=== PATIENT | female | born 1990 ===

== ENCOUNTER 2017-07-12 15:13 | Inpatient (IN) | payer OTHER ==
[~2017-07-12] VITALS: Ht 177.8 cm; Wt 111.0 kg
[2017-07-12] VITALS (14 sets, daily range): BP systolic 109–155; BP diastolic 65–95
[2017-07-12] MEDS ORDERED: VALT500T PO (15:37)
[2017-07-12] MEDS ORDERED: PRENTAB9 PO (15:37)
[2017-07-12] MEDS ORDERED: VITA100067 PO (15:37)
[2017-07-12] MEDS ORDERED: PROZ40CA PO (15:37)
[2017-07-12] MEDS ORDERED: LACTATED RINGER'S 1000 ML IV STA (16:49)
[2017-07-12] MEDS ORDERED: LR 1,000 ML IV SCH (17:00)
[2017-07-12] MEDS ORDERED: OXYTOCIN DRIP 30 UNITS in APPROPRIATE DILUENT 1 EA IV SCH (17:00)
--- NOTE | 2017-07-12 17:17 | HPEPDOC ---
Obstetrical History & Physical General Date of Admission Jul 12, 2017 at 16:34 History of Present Illness 26 y/o at 38+6 with VB since intx this AM. Small amt's all day long. No LOF. Irreg ctx's. Pos FM. Chief Complaint: Vaginal Bleeding Information Provided By: Patient Care Care: Good Care Dating Final EDC: Jul 20, 2017 Final EDC by: 1st trimester (US) (6 wk US) Antepartum Course Diagnos(e)s depression on Prozac Obese, early GCT WNL H/O HSV but no outbreaks in over 12 months, has been on Valtrex until 2 days ago , ran out, declines current sx's Past Medical History Past Obstetrical History : Past Obstetrical History: Multigravida Type of Delivery: Spontaneous Vaginal Del. (2012 7 lbs, 2014 7 lbs , no complications) RESEARCH INTERN History: No pertinent history, Herpes simplex virus(HSV) Past Medical History Medical History depression well controlled Surgical History: Denies/None Family History Significant Family History: No pertinent family hx Social History Marital Status: Family situation: Spouse/partner home Psychosocial History: No pertinent psych hx * Smoker: non-smoker Alcohol: Denies Drugs: denies Abuse Violence Screening Have you been hit/kicked/slapp: No Have you been sexually assault: No Imunizations Tdap status: current Influenza Status: declined Allergies Coded Allergies: No Known Allergies (Unverified , 07/12/17) Medications Scheduled Fluoxetine HCl (Prozac) 40 Mg Cap, 40 MG PO DAILY Multivitamins/ ( 27-0.8 mg) 1 Tab Tab, 1 TAB PO DAILY Valacyclovir Hydrochloride (Valtrex) 500 Mg Tab, 500 MG PO DAILY Vitamin D (Vitamin D) 1,000 Unit Cap, 1,000 UNIT PO DAILY Physical Examination Physical Examination GENERAL: Alert and oriented times three. ABDOMEN: Gravid and non-tender to touch. FETUS: vertex (VTX) by cx check. 4/70/-2/intact membranes, adeq pelvis. NEFG with no HSV lesions, my EFW 7 lbs HEART RATE: Regular rate and rhythm. LUNGS: Clear to auscultation (CTA). EXTREMITIES: No edema. Laboratory Data 24H LABS Laboratory Tests 2 07/12/17 16:38: Serology Scanned Report Hepatitis B Testing Urine Culture: No Growth Pertinent Laboratoy Data Blood Type: O+ RBC Antibody Screen: Negative HIV: Negative Hepatitis B: Negative Hepatitis C: Unknown Rapid Plasma Reagin: Nonreactive Rubella: Immune Varicella: Immune Chlamydia/Gonorrhea: Negative Group B Streptococcus: Negative Quad Screen Test: Declined Cystic Fibrosis: Declined Glucose Tolerance Test: 105 Anatomy Ultrasound Ultrasound Date: Mar 02, 2017 Placenta Location: Posterior Normal Anatomy: Yes Placenta Previa: No Steroid Therapy Steroid Therapy: No Assessment Variability: Moderate Accelerations: Positive Decelerations: Intermittent (1 late, isolated. Another decel noted that was random. Enough to augment, not send home) Tocometer Contractions: Yes Frequency: irregular Duration: less than 60 seconds Strength: palpated as mild Assessment/Plan Assessment 38+6 with 2 isolated decels, reassuring o/w. Cx favorable. Will augment with pitocin. Plan Admit and orient. Order Takers Supervisor and consent. Diet: clrs. Group B Streptococcus (GBS) neg Labs and intravenous (IV) per unit protocol. Counseled on Pitocin and induction/augmentation of labor (IOL). Lactated Ringers (LR): Bolus 1000 mL prior to epidural, then at 125 mL/hr o/w Anticipate normal spontaneous delivery () C-S as appropriate. Sessions SESSIONS,LAURA Waite MD Jul 12, 2017 17:17
[2017-07-12] MEDS ORDERED: CALCIUM CARBONATE 500 MG CHEW U/D PO PRN (17:30)
[2017-07-12 17:48] LABS: MEAN CORPUSCULAR HEMOGLOBIN 24.9 pg (27.0-33.0); MEAN CORPUSCULAR HGB CONC 32.2 g/dl (32.0-36.5); MEAN CORPUSCULAR VOLUME 77.3 fl (80.0-96.0); RED CELL DISTRIBUTION WIDTH 15.5 % (11.5-14.5); WHITE BLOOD COUNT 8.2 K/mm3 (4.0-10.0)
--- NOTE | 2017-07-12 19:17 | IPNPDOC ---
Text Note Date of Service The patient was seen on 07/12/17. NOTE NST reassuring, mostly Cat 1, mod mukesh and pos accels, ctx's have spaced out somewhat although she is feeling them more SROM clr at 1730, at that time decided to hold on pitocin for a few hours to see if progressed on her own Cx unchanged will start pitocin now, will check ~2200 Sessions VS,Mitzi, I+O VSMitzi, I+O Laboratory Tests 07/12/17 17:40 Red Blood Count 4.12, Mean Corpuscular Volume 77.3 L, Mean Corpuscular Hemoglobin 24.9 L, Mean Corpuscular Hemoglobin Concent 32.2, Red Cell Distribution Width 15.5 H SESSIONS,LAURA Waite MD Jul 12, 2017 19:17
[2017-07-12] MEDS: DOCUSATE SODIUM 100 MG CAP PO SCH (21:00)
[2017-07-12] MEDS ORDERED: FENTANYL 2MCG/ML ROPIVACAINE 0.2% IN 0.9% NACL 200ML IVBAG As Ordered ONE (21:55)
[2017-07-12] MEDS ORDERED: EPIDURAL COMMENT XX SCH (22:10)
[2017-07-12] MEDS ORDERED: NALOXONE INJ 0.4 MG/1 ML VIAL (J2310) IV PRN (22:10)
[2017-07-12] MEDS ORDERED: REFRIGERATOR IV KEYS XX PRN (22:10)
[2017-07-12] MEDS ORDERED: diphenhydrAMINE INJ 50MG/ML VIAL (J1200) IV PRN (22:10)
[2017-07-12] MEDS ORDERED: ONDANSETRON 4MG/2ML VIAL (J2405) IV PRN (22:10)
[2017-07-12] MEDS ORDERED: LACTATED RINGER'S 1000 ML IV PRN (22:10)
[2017-07-12] MEDS ORDERED: EPIDURAL/PCA KEYS XX PRN (22:10)
[2017-07-12] MEDS ORDERED: FENTANYL/ROPIVACAINE/NACL BAG 200 ML EPIDURAL SCH (22:10)
[2017-07-12] MEDS ORDERED: ePHEDrine SULFATE 25 MG/5 ML(5MG/ML) SYRINGE IV PRN (22:10)
--- NOTE | 2017-07-13 00:03 | DNPDOC ---
[facility] Delivery Note Delivery Note DATE OF DELIVERY: [id number] at 2340 PREDELIVERY DIAGNOSIS: 38 6/7 weeks' gestation and labor. POST DELIVERY DIAGNOSIS: Delivered. PROCEDURE: Spontaneous vaginal delivery [facility] ATTEND[facility]: Dr. Israel ANESTHESIA: Epidural ESTIMATED BLOOD LOSS: 200 mL. FINDINGS: weight TBD, Score 8/ DELIVERY SUMMARY: Called to room, I was in house around the corner, ~30 s called and baby had delivered, very fast and no delaying the mother. When I entered the room ~1-2 min after delivery on chest and crying. Cord C/C by FOB. Cord blood. Placenta delivered with slight traction and fundal massage , intact. Pit going and fundus firm. No lacs on close inspection. Sessions MD ISRAEL,LAURA Waite MD Jul 13, 2017 00:03
[2017-07-13] MEDS ORDERED: OXYTOCIN DRIP 30 UNITS in APPROPRIATE DILUENT 1 EA IV SCH ×4 (00:06)
[2017-07-13] MEDS ORDERED: RHOGAM 300 MCG (1500 IU) INJ (J2790) IM SCH (00:15)
[2017-07-13] MEDS ORDERED: MEASLES,MUMPS,RUBELLA VACCINE INJ (MMR-II) (90707) SC SCH (00:15)
[2017-07-13] MEDS ORDERED: DIBUCAINE 1% OINTMENT 30GM TOP PRN (00:15)
[2017-07-13 00:25] VITALS: BP 119/74
[2017-07-13 00:55] VITALS: BP 128/74
[2017-07-13 01:56] VITALS: BP 136/72
[2017-07-13] MEDS: IBUPROFEN 800 MG TAB PO PRN ×3 (02:24→20:04)
[2017-07-13] MEDS: ACETAMINOPHEN TAB 650MG DOSE (2X325MG) PO PRN ×2 (05:47→13:26)
[2017-07-13 06:35] VITALS: BP 126/70
--- NOTE | 2017-07-13 06:53 | IPNPDOC ---
Text Note Date of Service The patient was seen on 07/13/17. NOTE PPD#1 s/p S: Pt doing well. Pain well controlled, lochia decreasing/minimal, voiding spontaneously, tolerating a regular diet, ambulating without difficulty. No f/c /n/v/grullon/sob/cp/lp. Breast feeding. O: normotensive, nml HR, afebrile H: RRR no m/g/r L: CTA b/l no w/c/r/r Abd: soft, appropriately tender fundus, U-1 Ext: no c/c/e A/P: S/p , PPD#1, del at 2340 last night. Doing well. -Routine care -will continue to monitor -likely discharge home tomorrow. Sessions VS,Mitzi, I+O VSMitzi I+O Laboratory Tests 07/12/17 17:40 Red Blood Count 4.12, Mean Corpuscular Volume 77.3 L, Mean Corpuscular Hemoglobin 24.9 L, Mean Corpuscular Hemoglobin Concent 32.2, Red Cell Distribution Width 15.5 H Vital Signs Date Time Temp Pulse Resp B/P (MAP) Pulse Ox O2 Delivery O2 Flow Rate FiO2 07/13/17 06:35 98.3 73 18 126/70 (88) I&O- Last 24 Hours up to 6 AM 07/13/17 06:00 Output Total 200 ml Balance -200 ml SESSIONS,LAURA Waite MD Jul 13, 2017 06:53
[2017-07-13] MEDS: PRENATAL VITAMINS CHEWABLE TABLET PO SCH (08:50)
[2017-07-13] MEDS: DOCUSATE SODIUM 100 MG CAP PO SCH ×2 (08:50→20:02)
[2017-07-13 18:00] VITALS: BP 132/68
[2017-07-14 06:00] VITALS: BP 137/94
[2017-07-14] MEDS: IBUPROFEN 800 MG TAB PO PRN (06:10)
[2017-07-14] MEDS ORDERED: COLA100C5 PO (07:26)
[2017-07-14] MEDS ORDERED: ACET50TA PO (07:27)
[2017-07-14] MEDS ORDERED: IBUP-1114 PO (07:27)
[2017-07-14] MEDS ORDERED: PRENTAB9 PO (07:27)
[2017-07-14] MEDS ORDERED: NUPE1OIN2 TOP (07:28)
[2017-07-14] MEDS: PRENATAL VITAMINS CHEWABLE TABLET PO SCH (07:37)
[2017-07-14] MEDS: DOCUSATE SODIUM 100 MG CAP PO SCH (07:37)
== END 2017-07-14 12:30 | disposition home or self-care (01) | DRG 774 ==
LOC: M LDO 15:13 → M LDI 16:34 → M OBS 07-13 01:42
PROVIDERS: ADMIT Obstetrics & Gynecology; ATTEND Obstetrics & Gynecology
PROC: 10E0XZZ Delivery of Products of Conception, External Approach (ICD-10-PCS; principal; 2017-07-12)
DX: O98.52 Other viral diseases complicating childbirth (principal); Z3A.38 38 weeks gestation of pregnancy; F32.9 Major depressive disorder, single episode, unspecified; Z37.0 Single live birth; Z79.899 Other long term (current) drug therapy; E66.9 Obesity, unspecified; B00.9 Herpesviral infection, unspecified; O76 Abnormality in fetal heart rate and rhythm complicating labor and delivery; O99.214 Obesity complicating childbirth; O99.344 Other mental disorders complicating childbirth